=== PATIENT | male | born 1940 | race Caucasian/White ===

== ENCOUNTER 2017-08-09 07:50 | Emergency (ER) | payer MEDICARE ==
[~2017-08-09] VITALS: Ht 185.4 cm; Wt 87.2 kg
[2017-08-09] MEDS ORDERED: ELIQUIS2.5 MG PO (08:01)
[2017-08-09] MEDS ORDERED: AMLODIPINE-BEN1 EAC5 PO (08:01)
[2017-08-09] MEDS ORDERED: MECLIZINE HCL12.5 MG PO (12:33)
--- NOTE | 2017-08-09 21:39 | EKG ---
[facility] [address] [facility] [place] [address] Signed Atrial fibrillation with premature ventricular or aberrantly conducted complexes Low voltage QRS Abnormal ECG No previous ECGs available Confirmed by NOHEMI LANGFORD MD ([id number]) on 08/09/2017 9:38:55 PM Electronically Signed By: NOHEMI LANGFORD MD 08/09/17 2139 PATIENT NAME: ZACK PATE Electrocardiogram DATE OF : 42 PHYSICIAN: NOHEMI LANGFORD MD REPORT #: [id number] REPORT IS CONFIDENTIAL AND NOT TO BE RELEASED WITHOUT AUTHORIZATION
== END 2017-08-09 12:56 | disposition home or self-care (01) ==
LOC: ED 07:50
DX: R42 Dizziness and giddiness (principal); Z88.5 Allergy status to narcotic agent; Z79.899 Other long term (current) drug therapy
CPT/HCPCS: 71045; 80053; 81001; 84484; 85025; 87088; 87502; 93005; 93010; 99284

== ENCOUNTER 2022-02-04 13:06 | Emergency (ER) | payer MEDICARE ==
[~2022-02-04] VITALS: Ht 185.4 cm; Wt 87.2 kg
[~2022-02-04 13:06] MED LIST: AMLODIPINE-BEN1 EAC5 PO; ELIQUIS2.5 MG PO; MECLIZINE HCL12.5 MG PO
[2022-02-04] MEDS ORDERED: SPIRONOLACTONE25 MG PO (15:38)
[2022-02-04] MEDS ORDERED: ENTRESTO 24 MG1 EACH PO (15:38)
[2022-02-04] MEDS ORDERED: METOPROLOL SUCC50 MG PO (15:38)
[2022-02-04] MEDS ORDERED: LEVOTHYROXINE25 MCG PO (15:38)
== END 2022-02-04 17:35 | disposition home or self-care (01) ==
LOC: ED 13:06
DX: R04.0 Epistaxis (principal); Z79.01 Long term (current) use of anticoagulants; I48.91 Unspecified atrial fibrillation; Z88.5 Allergy status to narcotic agent; Z79.899 Other long term (current) drug therapy
CPT/HCPCS: 30901; 99283-25

== ENCOUNTER 2022-04-09 20:19 | Inpatient (IN) | payer MEDICARE ==
[~2022-04-09] VITALS: Ht 185.4 cm; Wt 80.0 kg
[~2022-04-09 20:19] MED LIST changes: +ENTRESTO 24 MG1 EACH PO; +LEVOTHYROXINE25 MCG PO; +METOPROLOL SUCC50 MG PO; +SPIRONOLACTONE25 MG PO
--- NOTE | 2022-04-10 01:48 | NUR ---
PT ARRIVED VIA STRETCHER AT THIS TIME TO ROOM 128, HE IS ALERT AND ORIENTED, FEROZ SANTIAGO TRANSPORTING. ON ARRIVAL PT IS ALERT AND ORIENTED. HE IS TALKING AND REPORTING ONLY MINIMAL PAIN AT HIS LEFT GROIN AND PUBIS BONE, PT DENIED NEED FOR ANY PAIN MEDICATION AT THIS TIME.
--- NOTE | 2022-04-10 02:15 | NUR ---
PT ASSESSMENT AND INTAKE COMPLETE, MEDICATIONS FORM HOME PROVIDED FOR PHARMACY FOLLOW UP. PT IS CURRENTLY AFEBRILE, CALLED IN REGARDS TO PT CONCERNS ABOUT TAKING HOME MEDICATIONS TONIGHT, ALSO ABOUT PT WANTING SOMETHING TO DRINK NO CURRENT DIET ORDER. NEW ORDERS GIVEN FOR DIET, SAID HE WILL REVIEW AND RESTARTE HOME MEDICATIONS IN AM.
--- NOTE | 2022-04-10 03:00 | NUR ---
ASSISTED PT TO CHANGE DEPENDS, THEY WERE VERY HEAVILY SOAKED, CLEANED AND REPLACED. SIGNIFICANT FOUL ODOR WELL DARK IN COLOR.
--- NOTE | 2022-04-10 05:28 | NUR ---
PT RESTING QUIETLY IN BED EYES CLOSED RESPIRATIONS REGULAR AT 22 BPM, NO DISTRESS NOTED. LACTIC LAB NOW 1.7
--- NOTE | 2022-04-10 07:30 | NUR ---
REPORT RECIEVED FROM NIGHT RN - PT VISITING WITH FAMILY AT THIS TIME.
--- NOTE | 2022-04-10 07:35 | NUR ---
Spoke with Annamaria. He states he and his live in a 1 story home [place]. He leases his land to be formed. He has a walker, but doesn't use ofter. His had a side by side and they use this to get around their property. He states he is active, drives him. He denies needs and plans on dc to home when cleared medically.
--- NOTE | 2022-04-10 08:00 | NUR ---
RN IN ROOM TO ASSESS PT - PT AAO X 3, DENIES PAIN OR SOB. AFEBRILE, DIAPHORETIC HOWEVER PT STATES THIS IS NORMAL. REMAINS IN AFIB - CHRONIC - RATE LOWER THIS AM THEN ON ADMIT. BP STABLE. DEPENDS CHANGED, FOUL DARK URINE NOTED, MEDIUM SATURATION. IV SITE TOLERATING ABX INFUSION WITHOUT DIFFICULTY. PT DENIES FURTHER NEEDS, SET UP WITH BREAKFAST AT THIS TIME.
--- NOTE | 2022-04-10 09:25 | NUR ---
RN IN ROOM TO ROUND ON PT - PT BREAKFAST TRAY CLEARED, 75% EATEN. ADEQUATE PO FLUID INTAKE. PT DENIES NEEDS AT THIS TIME. BP NOTED TO BE LOW, CUFF CHANGED TO APPROPRIATE SIZE, IMPROVED READING AND REDOCUMENTED.
--- NOTE | 2022-04-10 10:03 | NUR ---
FAMILY IN ROOM VISITING WITH PT.
--- NOTE | 2022-04-10 10:57 | NUR ---
RN IN ROOM ROUNDING WITH .
--- NOTE | 2022-04-10 12:00 | NUR ---
RN IN ROOM TO ASSESS PT - PT RESTING IN BED FINISHING LUNCH. REPORTS POOR APPETITE. ASSESSMENT UNCHANGED FROM PREVIOUS. VS REMAIN STABLE. CONDOM CATH PUTTING OUT TEA COLORED URINE IN SMALL QUANTITY. IV SITE REMAINS PATENT. PHARMACY IN ROOM TO REC MEDS.
[2022-04-10] MEDS ORDERED: TYLENOL EXTRA500 MG PO (12:31)
--- NOTE | 2022-04-10 12:31 | NUR ---
MED REC COMPLETE
--- NOTE | 2022-04-10 14:30 | NUR ---
RN IN ROOM TO ADMINISTER IV ABX. PT DENIES NEEDS AT THIS TIME. STATUS UNCHANGED. CALL LIGHT IN REACH.
--- NOTE | 2022-04-10 16:35 | NUR ---
RN IN ROOM TO ASSESS PT - PT RESTING IN BED WATCHING TV. ASSESSMENT REMAINS UNCHANGED. CONDOM CATH IN PLACE DRAINING 30-40MLS OF DARK FOUL SMELLING URINE PER HOUR. PT DENIES COMPLAINTS. REPORTS POOR APPETITE. ENCOURAGED ORAL INTAKE. CALL LIGHT IN REACH.
--- NOTE | 2022-04-10 17:00 | NUR ---
FAMILY IN ROOM VISITING WITH PT.
--- NOTE | 2022-04-10 18:24 | NUR ---
RN IN ROOM TO ROUND ON PT - PT RESTING IN BED WATCHING TV. PT DENIES NEEDS AT THIS TIME. URINE OUTPUT REMAINS BORDERLINE SUFFICIENT, CONDOM CATH INTACT. . IVF CONTINUE AT 125ML/H. CALL LIGHT IN REACH.
--- NOTE | 2022-04-10 19:24 | NUR ---
REPORT RECEIVED FROM TRACY SANTIAGO. PT AWAKE IN ROOM, WATCHING TV AND TALKING ON THE PHONE. HR 70'S, AFIB, SPO2 96% ON ROOM AIR.
--- NOTE | 2022-04-10 21:04 | NUR ---
IN TO CHECK URINE-PT REPORTS HAVING A SNEEZING EPISODE THAT DID NOT CAUSE HIM ANY PAIN -"IF THAT WAS YESTERDAY THE PAIN IN THAT MUSCLE AND GROIN WOULD HAVE TURNED ME INSIDE OUT".
--- NOTE | 2022-04-10 22:39 | NUR ---
PT CALLS TO HAVE LIGHTS TURNED OUT, WANTING TO SLEEP NOW. NO REQUESTS, WILL CALL WITH NEEDS.
--- NOTE | 2022-04-11 02:15 | NUR ---
PTS CALLS TO SAY HIS CONDOM CATH HAS COME OFF, ATTEMPTED TO GET IT BACK ON BUT IT DID NOT WORK. WILL LEAVE OFF FOR NOW, URINE OUTPUT HAS PICKED UP. PT DENIES OTHER NEEDS.
--- NOTE | 2022-04-11 05:05 | NUR ---
IN TO DO ASSESSMENT WITH LAB IN TO DRAW. PT HAS BEEN INCONTINENT, ATTENDS CHNAGED, FAN CARE DONE. ATTENDS WEIGHED-850ML ODOROUS URINE. PT CONT TO DENY PAIN. WANTS TO TRY TO GO BACK TO SLEEP.
--- NOTE | 2022-04-11 07:11 | NUR ---
PT RESTING WITH EYES CLOSED, RESP EVEN AND UNLABORED, HR 80'S.
--- NOTE | 2022-04-11 08:15 | NUR ---
RN IN ROOM TO ASSESS PT - COMPLETE, IMPROVED AND STABLE. URINE OUTPUT INCREASING AND LIGHTENING IN COLOR, MAINTAINS FOUL ODOR. PT UP TO CHAIR TO EAT BREAKFAST USING FWW AND STANDBY ASSIST - STEADY ON FEET. IMPROVED APPETITE THIS AM. IV SITE PATENT, IVF CONTINUOUS WITH ABX INFUSION. PT DENIES PAIN OR SOB. CALL LIGHT IN REACH.
--- NOTE | 2022-04-11 08:45 | NUR ---
No change in plan of care for dc. Pt will move to the floor today.
--- NOTE | 2022-04-11 09:46 | NUR ---
RN IN ROOM TO SL LOCK AND REMOVE HEART MONITOR. PT REMAINS UP IN CHAIR WATCHING TV, DENIES COMPLAINTS AT THIS TIME.
--- NOTE | 2022-04-11 10:45 | NUR ---
RN IN ROOM TO ASSIST PT TO BATHROOM USING FWW. ATTENDS SATURATED WITH URINE, BM PRODUCED - LIQUID/SOFT, STATES THIS IS NORMAL. PT BACK TO CHAIR WITH LEGS ELEVATED. CALL LIGHT IN REACH.
--- NOTE | 2022-04-11 12:55 | NUR ---
PT SLEEPING, DID NOT DISTURB. WILL CHECK BACK
--- NOTE | 2022-04-11 14:01 | NUR ---
FAMILY IN ROOM VISITING WITH PT.
--- NOTE | 2022-04-11 14:14 | NUR ---
RN IN ROOM TO ASSESS PT - PT DENIES COMPLAINTS. ATTENDS CHANGED, HEAVILY SOAKED IN DARK FOUL SMELLING URINE. VS STABLE. INCREASED APPETITE. ADEQUATE ORAL INTAKE. CALL LIGHT IN REACH.
--- NOTE | 2022-04-11 16:29 | NUR ---
REPORT PASSED TO PAMELA TAY ON MS - PT TRANSFERED VIA CHAIR WITH ALL BELONGINGS.
--- NOTE | 2022-04-11 19:17 | NUR ---
AT 1855 TIA AND I GOT PATIENT UP FROM THE CHAIR AND TRANSFERED HIM TO HIS BED. CHANGED HIM AND PUT EXTRA PADDING ALSO PUT BARRIER CREAM ON HIS BOTTOM.
--- NOTE | 2022-04-11 19:39 | NUR ---
Patient sleeping in bed. Call light within reach. Bed alarm in place.
--- NOTE | 2022-04-12 01:11 | NUR ---
Patient sleeping in bed. Call light within reach.
--- NOTE | 2022-04-12 03:23 | NUR ---
Uneventful shift. Patient alert and oriented. Calls appropriately, Has slept well throughout shift in bed. Lung sounds clear bilat. On RA. Bowel sounds active. One incont loose BM on shift. Has remained in bed. Saline locked. Tolerating PO diet. No complaints of pain. No complaints of nausea. Incont of urine.
--- NOTE | 2022-04-12 04:10 | NUR ---
IN TO ASSIST PT UP TO THE BR, STANDING WT TAKEN, PT BACK TO BED, VS TAKEN, NO FURTHER NEEDS AT THIS TIME
--- NOTE | 2022-04-12 08:27 | NUR ---
REPORT RECEIVED FROM NIGHT RN AND PT. CARE RESUMED. PT. IS ALERT AND ORIENTED TO ALL. HE DENIES PAIN. ASSESSMENT COMPLETED. DISCUSSED TAKING A SHOWER, POC AND MEDS. LEFT RESTING WITH CALL LIGHT IN REACH.
--- NOTE | 2022-04-12 09:50 | NUR ---
Spoke with pt and he cont. to plan to go home. Pt would like to leave today, but has not seen the Dr. today.
--- NOTE | 2022-04-12 10:54 | NUR ---
pt. accidentally pulled iv when standing. iv then removed by this rn. cath intact and education provided. pt. assisted to shower by pace analyst.
[2022-04-12] MEDS ORDERED: CEFDINIR300 MG PO (12:18)
[2022-04-12] MEDS ORDERED: BACTRIM DS TAB1 EACH PO (12:22)
--- NOTE | 2022-04-12 13:03 | NUR ---
ALL DISCHARGE INSTRUCTIONS REVIEWED AND QUESTIONS ANSWERED. VITALS STABLE. PT. LEFT WITH ALL BELONGINGS AND HOME MEDS VIA WHEELCHAIR WITH ENVIRONMENTAL FIELD SERVICES TECHNICIAN.
--- NOTE | 2022-04-13 20:50 | EKG ---
[facility] [address] [facility] [place] [address] Signed Atrial fibrillation with rapid ventricular response with premature ventricular or aberrantly conducted complexes Rightward axis Nonspecific T wave abnormality Abnormal ECG When compared with ECG of 26-JUL-2020 11:26, Nonspecific T wave abnormality now evident in Inferior leads Nonspecific T wave abnormality now evident in Anterolateral leads Confirmed by Cj Tirado MD () on 04/13/2022 8:50:04 PM Electronically Signed By: CJ TIRADO MD 04/13/222049 PATIENT NAME: ZACK PATE Electrocardiogram DATE OF : 42 PHYSICIAN: CJ TIRADO MD REPORT #: [id number] REPORT IS CONFIDENTIAL AND NOT TO BE RELEASED WITHOUT AUTHORIZATION
== END 2022-04-12 12:45 | disposition home or self-care (01) | DRG 872 ==
LOC: ED 20:19 → MS 04-10 01:18 → CCU 04-10 01:18 → MS 04-11 16:15
PROVIDERS: ADMIT Internal Medicine; ATTEND Family Medicine
DX: A41.81 Sepsis due to Enterococcus (principal); N12 Tubulo-interstitial nephritis, not specified as acute or chronic; I50.22 Chronic systolic (congestive) heart failure; N17.9 Acute kidney failure, unspecified; N13.6 Pyonephrosis; R65.20 Severe sepsis without septic shock; E03.9 Hypothyroidism, unspecified; Z66 Do not resuscitate; I48.0 Paroxysmal atrial fibrillation; Z96.0 Presence of urogenital implants; Z85.46 Personal history of malignant neoplasm of prostate; Z98.890 Other specified postprocedural states; Z88.5 Allergy status to narcotic agent; Z79.899 Other long term (current) drug therapy; Z79.01 Long term (current) use of anticoagulants; Z20.822 Contact with and (suspected) exposure to COVID-19
CPT/HCPCS: 36415; 71045; 74176; 80048; 80053; 81001; 83605; 85025; 85060; 85610; 87040; 87077; 87088; 87502; 93005; 93010; 99285-25; J0692; J7121; U0003

== ENCOUNTER 2022-07-02 14:13 | Emergency (ER) | payer MEDICARE ==
[~2022-07-02] VITALS: Ht 185.4 cm; Wt 80.0 kg
[~2022-07-02 14:13] MED LIST changes: +BACTRIM DS TAB1 EACH PO; +CEFDINIR300 MG PO; +TYLENOL EXTRA500 MG PO
[2022-07-02] MEDS ORDERED: METOPROLOL SUCC50 MG PO (15:03)
[2022-07-02] MEDS ORDERED: NITROFURANTOIN100 M1 PO (15:03)
[2022-07-02] MEDS ORDERED: CEFDINIR300 MG PO (17:47)
== END 2022-07-02 18:10 | disposition home or self-care (01) ==
LOC: ED 14:13
DX: N39.0 Urinary tract infection, site not specified (principal); I48.91 Unspecified atrial fibrillation; Z88.5 Allergy status to narcotic agent; Z79.899 Other long term (current) drug therapy; Z79.01 Long term (current) use of anticoagulants
CPT/HCPCS: 51701; 51798; 72170; 81001; 99283-25

== ENCOUNTER 2022-07-06 11:53 | Emergency (ER) | payer MEDICARE ==
[~2022-07-06] VITALS: Ht 185.4 cm; Wt 80.0 kg
[~2022-07-06 11:53] MED LIST changes: +NITROFURANTOIN100 M1 PO
--- OUTSIDE RECORDS SUMMARY | 2022-07-06 11:56 | XMS ---
PreManage Notification: ZACK PATE Security Boarding Specialist Events No recent Security Events currently on file CRITERIA MET - [facility] - 2 Visits in 30 Days CARE PROVIDERS [facility] Current PHONE: Unknown Héctor has no Care Guidelines for this patient. [facility] VISIT COUNT (12 MO.) 4 [facility] TOTAL 4 NOTE: Visits indicate total known visits. ED/UCC VISIT TRACKING (12 MO.) 07/06/2022 11:55 [facility] TYPE: Emergency COMPLAINT: - GROIN/MUSCLE THIGH PAIN, DEHYDRATION, AMS 07/02/2022 14:15 [facility] TYPE: Emergency COMPLAINT: - L SIDE GROIN PAIN, POSS KIDNEY INFECTION DIAGNOSES: - Urinary tract infection, site not specified - [facility] [place] [facility] (current[facility] drug therapy - Allergy status to narcotic agent - prison (current) use of anticoagulants - Left lower quadrant pain - Unspecified atrial fibrillation 04/09/2022 20:20 [facility] TYPE: Emergency COMPLAINT: - GROIN PAIN 02/04/2022 13:06 [facility] TYPE: Emergency COMPLAINT: - NOSE BLEED DIAGNOSES: - Unspecified atrial fibrillation - Allergy status to narcotic agent - Other [place] [facility] drug therapy - intermission coordinator (current) use of anticoagulants - [facility] INPATIENT VISIT TRACKING (12 MO.) 04/10/2022 01:18 [facility] TYPE: Medical Surgical COMPLAINT: - URINARY TRACT INFECTION WITH SEPSIS DIAGNOSES: - Paroxysmal atrial fibrillation - Allergy status to narcotic agent - Pyonephrosis - prison (current) use of anticoagulants - Sepsis due to Enterococcus - Other specified postprocedural states - Hypothyroidism, unspecified - Chronic systolic (congestive) heart failure - Personal history of malignant neoplasm of prostate - Presence of urogenital implants - Other ad terminal makeup operator (current) drug therapy - Severe sepsis without septic shock - Pyonephrosis - Paroxysmal atrial fibrillation - Weakness - Hypothyroidism, unspecified - Tubulo-interstitial nephritis, not specified as acute or chronic - Personal history of malignant neoplasm of prostate - Sepsis due to Enterococcus - Acute kidney failure, unspecified - Tubulo-interstitial nephritis, not specified as acute or chronic - Do not resuscitate - Presence of urogenital implants - Other specified postprocedural states - Acute kidney failure, unspecified - Severe sepsis without septic shock - prison (current) use of anticoagulants - Chronic systolic (congestive) heart failure - Contact with and (suspected) exposure to COVID-19 - Contact with and (suspected) exposure to COVID-19 - Infection and inflammatory reaction due to other urinary stents, initial encounter - Other ad terminal makeup operator (current) drug therapy - Do not resuscitate - Allergy status to narcotic agent [email or web address]
[2022-07-06] MEDS ORDERED: PREDNISONE20 MG PO (18:53)
[2022-07-06] MEDS ORDERED: ALBUTEROL2.5 MG/3 M INH (18:54)
== END 2022-07-06 19:16 | disposition home or self-care (01) ==
LOC: ED 11:53
PROC: 4A0D7LZ Measurement of Urinary Volume, Via Natural or Artificial Opening (ICD-10-PCS; principal; 2022-07-06)
DX: R06.02 Shortness of breath (principal); R05.9 Cough, unspecified; B97.4 Respiratory syncytial virus as the cause of diseases classified elsewhere; E86.0 Dehydration; N39.0 Urinary tract infection, site not specified; I48.91 Unspecified atrial fibrillation; E03.9 Hypothyroidism, unspecified; N18.9 Chronic kidney disease, unspecified; I50.9 Heart failure, unspecified; Z20.822 Contact with and (suspected) exposure to COVID-19; Z79.01 Long term (current) use of anticoagulants; Z79.899 Other long term (current) drug therapy; Z88.5 Allergy status to narcotic agent
CPT/HCPCS: 36415; 51798; 71045; 71260; 80053; 84484; 85025; 85379; 87502; 94640; 96360; 96361; 99284-25; C9803; J7030; J7512; Q9967; U0003

== ENCOUNTER 2023-07-05 19:32 | Emergency (ER) | payer MEDICARE ==
[~2023-07-05] VITALS: Ht 185.4 cm; Wt 89.0 kg
[~2023-07-05 19:32] MED LIST changes: +ALBUTEROL2.5 MG/3 M INH; +PREDNISONE20 MG PO
[2023-07-05 19:46] LABS: PH, VENOUS 7.396 (7.31-7.41)
[2023-07-05] MEDS ORDERED: TORSEMIDE20 MG PO (19:49)
[2023-07-05 19:52] LABS: HEMATOCRIT 41.3 % (35.0-50.0); HEMOGLOBIN 13.2 g/dL (12.0-18.0); MCH 26.2 (27-36); MCHC 31.9 g/dl (30-36); PLATELET COUNT 197 K/uL (140-440); RBC 5.04 M/ul (4.3-5.7); RDW 19.4 (10.5-15.0)
[2023-07-05 20:22] LABS: ALBUMIN 3.2 g/dL (3.4-5.0); ALBUMIN/GLOBULIN RATIO 0.8 (1.1-2.4); ANION GAP 15.9 (7-21); BILIRUBIN, TOTAL 1.5 ng/dL (0.2-1.0); BUN/CREATININE RATIO 16.53 (6.0-28.6); CALCIUM 8.4 mg/dL (8.5-10.1); CREATININE, SERUM 2.6 mg/dL (0.70-1.30); POTASSIUM 3.9 mmol/L (3.5-5.1); PROTEIN, TOTAL 7.2 g/dL (6.4-8.2)
[2023-07-05 20:30] LABS: INFLUENZA B NAA NEGATIVE (NEGATIVE); RESPIRATORY SYNCYTIAL VIR NAA NEGATIVE (NEGATIVE)
[2023-07-05] MEDS ORDERED: PAXLOVID 300-11 EACH PO (20:38)
[2023-07-05 20:51] LABS: BASOPHILS, MANUAL DIFF 3; LYMPHOCYTES, MANUAL DIFF 15; MONOCYTES, MANUAL DIFF 12; NEUTROPHILS, MANUAL DIFF 70
[2023-07-05 22:25] VITALS: BP 126/79
== END 2023-07-05 22:25 | disposition home or self-care (01) ==
LOC: ED 19:32
PROVIDERS: Family Medicine
DX: U07.1 COVID-19 (principal); I11.0 Hypertensive heart disease with heart failure; I50.9 Heart failure, unspecified; I48.91 Unspecified atrial fibrillation; Z88.5 Allergy status to narcotic agent; Z79.01 Long term (current) use of anticoagulants; Z79.890 Hormone replacement therapy; Z79.899 Other long term (current) drug therapy
CPT/HCPCS: 36415; 71045; 80053; 82803; 83880; 84484; 85025; 87502; 99285-25; A9270; C9803; J1940; U0002